=== PATIENT | female | born 1995 | race Caucasian/White ===

== ENCOUNTER 2018-02-22 07:48 | Emergency (ER) | payer OTHER ==
[2018-02-22 08:01] VITALS: BP 119/68
[2018-02-22] MEDS ORDERED: Albuterol HFA INHALER* 8 gm MDI INH ONE (08:25)
--- NOTE | 2018-02-22 08:37 | UC ---
Respiratory Complaint HPI - HPI Summary HPI Summary: 22 yo female c/o last 3 weeks of on and off sinus congestion and sore throat. Last 5 days has had worsening cough. Minimal fever. No rash. Minimal production, but + sensation that something is in chest, remy with cough. Last night + h/a, pain with cough, better now, but prompted her to seek medical attention. No GI sx. - History of Current Complaint Chief Complaint: UCRespiratory Stated Complaint: CHEST CONGESTION Time Seen by Provider: 02/22/18 08:08 Hx Obtained From: Patient Hx Last Menstrual Period: 02/02/18 Pain Intensity: 0 - Allergies/Home Medications Allergies/Adverse Reactions: Allergies Allergy/AdvReac Type Severity Reaction Status Date / Time No Known Allergies Allergy Unverified 02/22/18 08:01 PMH/Surg Hx/FS Hx/Imm Hx Previously Healthy: Yes - Surgical History Surgical History: Yes Surgery Procedure, Year, and Place: tonsillectomy - Family History Known Family History: Positive: Unknown - Social History Occupation: Employed Full-time Alcohol Use: Occasionally Substance Use Type: None Smoking Status (MU): Never Smoked Tobacco Review of Systems All Other Systems Reviewed And Are Negative: Yes Constitutional: Positive: Negative Skin: Positive: Negative Eyes: Positive: Negative ENT: Positive: Other - see hpi Respiratory: Positive: Cough, Other - see hpi Cardiovascular: Positive: Negative Gastrointestinal: Positive: Negative Genitourinary: Positive: Negative Motor: Positive: Negative Neurovascular: Positive: Negative Musculoskeletal: Positive: Negative Neurological: Positive: Negative - see hpi Psychological: Positive: Negative Is Patient Immunocompromised?: No Physical Exam Triage Information Reviewed: Yes Appearance: Well-Nourished Vital Signs: Initial Vital Signs Temp 97.9 F 02/22/18 07:57 Pulse 72 02/22/18 07:57 Resp 16 02/22/18 07:57 BP 119/68 02/22/18 07:57 Pulse Ox 99 02/22/18 07:57 Vital Signs Reviewed: Yes Eye Exam: Normal ENT: Positive: Pharyngeal erythema - mild redness, no sores/ exudates,uvula midline, TM dull - dull rtx au Neck exam: Normal Neck: Positive: Supple, Nontender, No Lymphadenopathy Respiratory Exam: Other - + rhonchorus cough, significant. + exp wheeze with cough. Respiratory: Positive: Chest non-tender, No respiratory distress, No accessory muscle use Cardiovascular Exam: Normal Cardiovascular: Positive: RRR, No Murmur, Pulses Normal, Brisk Capillary Refill Abdominal Exam: Normal Abdomen Description: Positive: Nontender Musculoskeletal Exam: Normal Musculoskeletal: Positive: Strength Intact Neurological Exam: Normal - grossly nonfocal Psychological Exam: Normal - conversing easily and appropriately Skin Exam: Normal - no visible or reported rash UC Diagnostic Evaluation - Laboratory O2 Sat by Pulse Oximetry: 99 Respiratory Course/Dx - Course Course Of Treatment: Reviewed coa / tx plan. Questions as posed answered to the best of my ability. Declines work note. - Differential Dx/Diagnosis Provider Diagnoses: Acute bronchitis with bronchospasm Discharge - Sign-Out/Discharge Documenting (check all that apply): Patient Departure All imaging exams completed and their final reports reviewed: No Studies - Discharge Plan Condition: Stable Disposition: HOME Prescriptions: Azithromyxin GERARD (NF) [Z-Gerard (Zithromax) 250 mg tabs #6] 2 tab PO .TODAY, THEN 1 DAILY #6 tab Patient Education Materials: Acute Bronchitis (ED), Bronchospasm (ED) Referrals: Gricelda Joiner MD [Primary Care Provider] - Additional Instructions: Follow up primary care physician per routine. Seek medical attention for worse or new symptoms in the meantime. - Billing Disposition and Condition Condition: STABLE Disposition: Home
== END 2018-02-22 08:37 | disposition home or self-care (01) ==
LOC: UCEAST 07:48
DX: J20.9 Acute bronchitis, unspecified (principal)
CPT/HCPCS: 99212; A9270-GY; G0463

== ENCOUNTER 2023-12-14 18:52 | Inpatient (IN) ==
[2023-12-14 19:19] LABS: ABS Monocytes 0.3 10^3/uL (0.0-0.9); ABS Neutrophils 5.2 10^3/uL (1.5-7.6); Eosinophil % 0.4 %; Hematocrit 32.8 % (35-45); Lymphocyte % 14.8 %; Mean Corpuscular Hemoglobin 28.8 pg (27-33); Mean Corpuscular Hgb Conc 33.6 g/dL (31-36); Mean Corpuscular Volume 85.9 fL (80-97); Mean Platelet Volume 9.3 fL (7.5-11.2); Platelet Count 214 10^3/uL (150-450); Red Blood Count 3.82 10^6/uL (3.63-4.92); Red Cell Distribution Width 14.3 % (12-17); White Blood Count 6.6 10^3/uL (3.8-11.8)
[2023-12-14 19:34] LABS: Activated Partial Thrombo Time 24.3 seconds (26.0-38.0); INR 0.95 (0.85-1.14)
[2023-12-14 19:52] LABS: Albumin 3.6 g/dL (3.2-5.2); Albumin/Globulin Ratio 1.6 (1-3); Calcium 8.7 mg/dL (8.6-10.3); Creatinine, Serum 0.69 mg/dL (0.51-0.95); Globulin 2.3 g/dL (2-4); HDL Cholesterol 83.4 mg/dL; Indirect Bilirubin 0.4 mg/dL (0.3-1.0); Magnesium 1.8 mg/dL (1.9-2.7); Potassium 3.7 mmol/L (3.5-5.0); Total Bilirubin 0.4 mg/dL (0.2-1.0); Total Protein 5.9 g/dL (6.4-8.9); Uric Acid 4.7 mg/dL (2.3-6.6); eGFR CKD-EPI 121.9 (>60)
[2023-12-14] MEDS: Calcium Carb (TUMS) 500 mg CHEW TAB PO ONE (20:22)
[2023-12-14 21:43] LABS: Urine Appearance Turbid; Urine Bilirubin Negative (Negative); Urine Blood Negative (Negative); Urine Color Light-Yellow; Urine Glucose Negative (Negative); Urine Ketones Negative (Negative); Urine Nitrite Negative (Negative); Urine Protein Negative (Negative); Urine Specific Gravity 1.012 (1.002-1.030); Urine Urobilinogen Negative (Negative)
[2023-12-14 21:57] LABS: Urine Creatinine Concentration 74.42 mg/dL (20.00-320.00); Urine TP Creat Ratio 0.14 mg/mg
[2023-12-14 22:01] LABS: Urine Benzodiazepine Screen None Detected (None Detect); Urine Cannabinoids Screen None Detected (None Detect); Urine Opiates Screen None Detected (None Detect)
[2023-12-14 22:16] LABS: Urine Bacteria Absent /HPF (Absent); Urine Red Blood Cell Trace(0-2/hpf) /HPF (0-Trace); Urine Squamous Epithelial Cell Present /HPF (Absent); Urine White Blood Cell 1+(6-10/hpf) /HPF (0-Trace)
[2023-12-14] MEDS: Enoxaparin 40 MG/0.4 ML SYR SUBCUT SCH (23:05)
[2023-12-14] MEDS: Lactated Ringers 1000 ml BAG 1,000 ML IV ONE (23:07)
[2023-12-14] MEDS ORDERED: Heparin 5000 UNITS/ML 1 mL VIAL SUBCUT SCH (23:45)
[2023-12-15] MEDS ORDERED: Sulfur Hexaflouride MICROSPHR 25 MG VIAL IV PRN (00:07)
[2023-12-15] MEDS: Calcium Carb (TUMS) 500 mg CHEW TAB PO PRN (02:40)
[2023-12-15] MEDS: Magnesium Sulfate IV 1GM/100ML 1 GM/100 ML BAG IV ONE ×2 (02:40)
[2023-12-15 03:40] LABS: ABS Lymphocytes 1.7 10^3/uL (1.0-4.8); ABS Monocytes 0.5 10^3/uL (0.0-0.9); ABS Neutrophils 4.8 10^3/uL (1.5-7.6); ABS Nucleated RBC 0.01 10^3/ul; Eosinophil % 0.4 %; Hematocrit 31.6 % (35-45); Hemoglobin 11.1 g/dL (11.5-14.3); Lymphocyte % 24.4 %; Mean Corpuscular Hemoglobin 30.3 pg (27-33); Mean Corpuscular Hgb Conc 35.2 g/dL (31-36); Mean Corpuscular Volume 86.2 fL (80-97); Mean Platelet Volume 9.4 fL (7.5-11.2); Nucleated Red Blood Cells % 0.1 %/100WBC (0.0-0.8); Platelet Count 221 10^3/uL (150-450); Red Blood Count 3.66 10^6/uL (3.63-4.92); Red Cell Distribution Width 14.3 % (12-17); White Blood Count 7.1 10^3/uL (3.8-11.8)
[2023-12-15 03:48] LABS: Calcium 8.8 mg/dL (8.6-10.3); Creatinine, Serum 0.74 mg/dL (0.51-0.95); Magnesium 1.9 mg/dL (1.9-2.7); Potassium 3.9 mmol/L (3.5-5.0); eGFR CKD-EPI 113.7 (>60)
[2023-12-15 17:46] VITALS: BP 112/70
[2023-12-15] MEDS ORDERED: Enoxaparin 40 MG/0.4 ML SYR SUBCUT SCH (23:45)
[2023-12-17 11:43] LABS: DRVVT Screen Ratio 1.12 ratio (<1.20); LAC APTT 24 sec (25 - 37); Prothrombin Time(LAC) 10.5 sec (9.4 - 12.5)
== END 2023-12-15 19:00 | disposition home or self-care (01) | DRG 125 ==
LOC: ED 18:52 → EDHOLD 21:38 → SUATTDRO 21:38 → MEDTELE 12-15 00:37
PROVIDERS: ADMIT Internal Medicine; ATTEND Student in an Organized Health Care Education/Training Program

== ENCOUNTER 2023-12-16 07:59 | Inpatient (IN) ==
[2023-12-16] MEDS ORDERED: Lidocaine 1% VIAL 10 MG/ML 30 ML VIAL INJ PRN (10:02)
[2023-12-16] MEDS: Lactated Ringers 1000 ml BAG 1,000 ML IV ONE (10:40)
[2023-12-16] MEDS: Oxytocin in LR 20,000 MILLI.UNIT/1,000 ML BAG IV SCH (11:04)
[2023-12-16 11:05] LABS: ABS Lymphocytes 1.2 10^3/uL (1.0-4.8); ABS Monocytes 0.4 10^3/uL (0.0-0.9); ABS Neutrophils 6.6 10^3/uL (1.5-7.6); Eosinophil % 0.3 %; Hemoglobin 10.8 g/dL (11.5-14.3); Mean Corpuscular Hemoglobin 28.7 pg (27-33); Mean Corpuscular Hgb Conc 33.6 g/dL (31-36); Mean Corpuscular Volume 85.2 fL (80-97); Platelet Count 214 10^3/uL (150-450); Red Blood Count 3.75 10^6/uL (3.63-4.92); Red Cell Distribution Width 14.3 % (12-17); White Blood Count 8.2 10^3/uL (3.8-11.8)
[2023-12-16 11:31] LABS: Urine Benzodiazepine Screen None Detected (None Detect); Urine Cannabinoids Screen None Detected (None Detect); Urine Opiates Screen None Detected (None Detect)
[2023-12-16] MEDS ORDERED: Glycerin ADULT 2.4 gm SUPP PR PRN (19:04)
[2023-12-16] MEDS: Witch Hazel PAD JAR TOPICAL PRN (20:14)
[2023-12-16] MEDS: Dibucaine 1% OINT 28.35 GM TUBE PR PRN (20:14)
[2023-12-16 21:19] LABS: Urine Appearance Clear; Urine Bilirubin Negative (Negative); Urine Blood Negative (Negative); Urine Color Yellow; Urine Glucose Negative (Negative); Urine Ketones Negative (Negative); Urine Nitrite Negative (Negative); Urine Protein Trace (Negative); Urine Urobilinogen Negative (Negative); Urine pH 6.5 (5.0-8.0)
[2023-12-16] MEDS: Lactated Ringers 1000 ml BAG 1,000 ML IV SCH (23:02)
[2023-12-16] MEDS: Tranexamic Acid 1 GM/100ML BAG 0 MG/0 ML BAG IV ONE (23:02)
[2023-12-16] MEDS: Buffered Lidocaine 1% SYRIN 1 ml INTRADERM ONE (23:03)
[2023-12-17 06:55] LABS: ABS Lymphocytes 1.3 10^3/uL (1.0-4.8); ABS Monocytes 0.6 10^3/uL (0.0-0.9); ABS Neutrophils 7.3 10^3/uL (1.5-7.6); Eosinophil % 0.3 %; Hematocrit 24.7 % (35-45); Hemoglobin 8.7 g/dL (11.5-14.3); Lymphocyte % 13.5 %; Mean Corpuscular Hemoglobin 29.9 pg (27-33); Mean Corpuscular Hgb Conc 35.1 g/dL (31-36); Mean Corpuscular Volume 85.2 fL (80-97); Mean Platelet Volume 8.8 fL (7.5-11.2); Platelet Count 165 10^3/uL (150-450); Red Cell Distribution Width 13.6 % (12-17); White Blood Count 9.3 10^3/uL (3.8-11.8)
[2023-12-17 11:47] LABS: RPR Nonreactive (Nonreactive)
[2023-12-17] MEDS: Polyethylene Glycol 3350 17 GM PACKET PO SCH (18:38)
[2023-12-18 09:13] VITALS: BP 111/56
[2023-12-20 15:46] LABS: T.Pallidum TP-PA Negative (Negative)
== END 2023-12-18 14:19 | disposition home or self-care (01) | DRG 807 ==
LOC: MCHOBOUT 07:59 → MCHOB 09:54